=== PATIENT | female | born 1975 | race Caucasian/White ===

== ENCOUNTER → 2018-05-23 | Outpatient (CLI) | payer OTHER | LOC: M RAD 17:30 | DX: R42 Dizziness and giddiness (principal); I65.23 Occlusion and stenosis of bilateral carotid arteries | CPT/HCPCS: 93880 ==

== ENCOUNTER → 2018-05-27 | Outpatient (CLI) | payer OTHER | LOC: M RAD 16:38 | DX: Z12.31 Encounter for screening mammogram for malignant neoplasm of breast (principal) | CPT/HCPCS: 77067 ==

== ENCOUNTER → 2018-12-09 | Outpatient (REF) | payer OTHER ==
[2018-12-09 18:40] LABS: ALBUMIN 3.9 GM/DL (3.2-5.2); ALT/SGPT 31 U/L (12-78); BILIRUBIN,TOTAL 0.3 MG/DL (0.2-1.0); BLOOD UREA NITROGEN 19 MG/DL (7-18); CALCIUM LEVEL 9.1 MG/DL (8.5-10.1); CARBON DIOXIDE LEVEL 24 MEQ/L (21-32); CHLORIDE LEVEL 110 MEQ/L (98-107); CREATININE FOR GFR 0.92 MG/DL (0.55-1.30); GLOMERULAR FILTRATION RATE > 60.0 (>58); GLUCOSE, FASTING 59 MG/DL (70-100); POTASSIUM SERUM 4.2 MEQ/L (3.5-5.1); RHEUMATOID FACTOR QUANT < 10.0 IU/ML (<15.0); SODIUM LEVEL 141 MEQ/L (136-145); TOTAL PROTEIN 7.3 GM/DL (6.4-8.2)
[2018-12-09 18:47] LABS: TOTAL 25(OH) VITAMIN D 21.6 NG/ML (30.0-100.0)
[2018-12-09 18:53] LABS: HEMATOCRIT 37.4 % (36.0-47.0); HEMOGLOBIN 12.5 g/dl (12.0-15.5); MEAN CORPUSCULAR HEMOGLOBIN 31.6 pg (27.0-33.0); MEAN CORPUSCULAR HGB CONC 33.4 g/dl (32.0-36.5); MEAN CORPUSCULAR VOLUME 94.4 fl (80.0-96.0); PLATELET COUNT, AUTOMATED 307 10^3/uL (150-450); RED BLOOD COUNT 3.96 10^6/uL (4.00-5.40); WHITE BLOOD COUNT 10.2 10^3/uL (4.0-10.0)
[2018-12-09 19:04] LABS: FOLATE 20.4 NG/ML; VITAMIN B12 LEVEL 464 PG/ML
[2018-12-09 19:27] LABS: EOSINOPHILS 4 % (0-5); LYMPHOCYTES 54 % (16-52); MONOCYTES 1 % (0-8); NEUTROPHILS 41 % (35-75)
[2018-12-09 19:28] LABS: PLATELET ESTIMATE NORMAL (NORMAL)
[2018-12-09 20:06] LABS: ERYTHROCYTE SEDIMENTATION RATE 12 mm/hr (0-20)
[2018-12-11 14:24] LABS: ANTINUCLEAR ANTIBODIES DIRECT Negative (Negative)
== END ==
LOC: M LABNEURO 15:26
PROVIDERS: ATTEND Psychiatry & Neurology Neurology
DX: R51 Headache (principal)

== ENCOUNTER → 2019-04-08 | Outpatient (CLI) | payer OTHER ==
--- NOTE | 2019-04-08 11:15 | REP ---
CT paranasal sinuses: 04/08/2019. Indication: Sinusitis. Comparison: None. Technique: Unenhanced axial CT images of the paranasal sinuses were performed with coronal reconstructions provided. Findings: Diffuse periosteal mucosal thickening is present within the maxillary sinuses with air fluid levels bilaterally and small frothy secretions on the right. Diffuse periosteal mucosal thickening is additionally noted within the ethmoid air cells and inferior frontal sinuses. Small air fluid level is present within the left sphenoid sinus with retention cysts and mild diffuse periosteal mucosal thickening. The OMCs demonstrate soft tissue compromise bilaterally. There is soft tissue compromise of the frontal recesses bilaterally as well. The sphenoethmoidal recesses are patent. There is minimal rightward deviation of the nasal septum. No significant ocular, intraorbital or intracranial abnormalities are detected. The mastoid air cells are clear. Impression: Acute on chronic pansinusitis as described. Electronically Signed by Yosvany Montez DO 04/08/2019 11:06 A
== END ==
LOC: M RAD 10:31
PROVIDERS: ATTEND Otolaryngology
DX: J01.41 Acute recurrent pansinusitis (principal)

== ENCOUNTER → 2019-08-03 | Outpatient (CLI) | payer OTHER ==
--- NOTE | 2019-08-03 11:03 | REPMRS ---
Patient History Family history of breast cancer at age 50 in maternal aunt. Digital Woman Screen Mammo: August 03, 2019 - Exam #: [id number] Bilateral CC and MLO view(s) were taken. Technologist: Maura Will Technologist Prior study comparison: May 27, 2018, bilateral digital mammo screening bilat, performed at [facility]. FINDINGS: The breast tissue is heterogeneously dense. This may lower the sensitivity of mammography. There is a moderate amount of heterogeneously dense fibroglandular tissue which is fairly symmetric. There is no interval development of dominant mass, architectural distortion, or grouped microcalcification typical of malignancy. There has been no change in the appearance of the mammogram from the prior studies. Assessment: BI-RADS/ACR category 1 mammogram. Negative Mammogram. Recommendation Routine screening mammogram of both breasts in 1 year (for women over age 40). This patient's Lifetime Breast Cancer RIsk is estimated at 17.4 %. This mammogram was interpreted with the aid of an FDA-approved computer-aided dectection system. Electronically Signed By: Tyler Sotomayor MD 08/03/19 [id number]
== END ==
LOC: M WHC 10:28
PROVIDERS: ATTEND Student in an Organized Health Care Education/Training Program
DX: Z12.31 Encounter for screening mammogram for malignant neoplasm of breast (principal)